=== PATIENT | male | born 1955 | race Caucasian/White ===

== ENCOUNTER 2016-08-09 10:53 | Outpatient (CLI) | payer OTHER ==
--- NOTE | 2016-08-09 20:47 | Diagnostic Imaging Report ---
[facility] [address] [facility].[address] [address] ~ ~ ~ ~ Report Submission Date: Aug 09, 2016 3:29:03 PM WELT DRAWER Patient ~ Study Name: CAMILLA HILL ~ Date: Aug 09, 2016 11:05:08 AM WELT DRAWER ~ Modality Type: CR Gender: M ~ Description: CHEST : 57 ~ Institution: [facility] Physician: JAX GARCIA ~ ~ ~ ~ HISTORY: ~60-year-old male with cough, shortness of breath, COPD. COMPARISON: Chest x-ray dated 09/08/2010 TECHNIQUE: Single PA view of the chest was performed. FINDINGS: There is a new left chest single lead AICD. ~There are diffuse interstitial markings throughout both lungs, greater on the right and greater in the lung bases. ~There are confluent opacities in the right lung base obscuring the right hemidiaphragm and partially obscuring the right heart border. ~These opacities are essentially new versus the prior chest x-ray from September 2010. ~No pneumothorax. ~The heart is enlarged. IMPRESSION: 1. ~Diffuse bilateral pulmonary interstitial opacities, with confluent opacities in the right lung base. ~Favor multifocal pneumonia, although there may be a superimposed component of CHF. ~There may be a small to moderate right pleural effusion also. 2. ~Cardiomegaly and left chest AICD. ~ Electronically signed on Aug 09, 2016 3:29:03 PM WELT DRAWER by: Malick Cai [facility]ol
== END 2016-08-09 10:54 ==
LOC: RAD 10:53
PROVIDERS: ATTEND Nurse Practitioner Family
DX: R06.02 Shortness of breath (principal); R05 Cough; J44.9 Chronic obstructive pulmonary disease, unspecified
CPT/HCPCS: 71010